=== PATIENT | female | born 1950 | race Caucasian/White ===

== ENCOUNTER → 2017-03-17 | Outpatient (CLI) | payer MEDICARE | END | disposition home or self-care (01) | LOC: RAD 19:18 | PROVIDERS: ATTEND Physician Assistant | DX: S46.111A Strain of muscle, fascia and tendon of long head of biceps, right arm, initial encounter (principal); X58.XXXA Exposure to other specified factors, initial encounter; Y93.89 Activity, other specified; Y92.89 Other specified places as the place of occurrence of the external cause; Y99.8 Other external cause status ==

== ENCOUNTER 2017-07-02 12:44 | Emergency (ER) | payer MEDICARE ==
[~2017-07-02] VITALS: Ht 170.2 cm; Wt 95.0 kg
[2017-07-02 12:45] VITALS: BP 158/91
[2017-07-02 14:26] LABS: BASOPHILS # (AUTO) 0.06 x10^3/uL (0-0.1); BASOPHILS % (AUTO) 1 % (0-1); EOSINOPHILS # (AUTO) 0.51 x10^3/uL (0-0.4); EOSINOPHILS % (AUTO) 7 % (1-7); LYMPHOCYTES # (AUTO) 1.44 x10^3/uL (1-3.4); LYMPHOCYTES % (AUTO) 19 % (22-44); MD NO; MEAN CORPUSCULAR HEMOGLOBIN 31.5 pg (27.0-34.8); MEAN CORPUSCULAR HGB CONC 33.5 g/dL (32.4-35.8); MEAN PLATELET VOLUME 8.7 fL (7.4-10.4); MONOCYTES # (AUTO) 0.54 x10^3/uL (0.2-0.8); MONOCYTES % (AUTO) 7 % (2-9); NEUTROPHILS # (AUTO) 5.01 x10^3/uL (1.8-6.8); NEUTROPHILS % (AUTO) 66 % (42-75); PLATELET COUNT 274 x10^3/uL (130-400); RED BLOOD COUNT 4.65 x10^6/uL (3.82-5.3); RED CELL DISTRIBUTION WIDTH 13.4 % (9.6-15.2)
[2017-07-02 14:33] LABS: PROTHROMBIN TIME 10.4 Seconds (9.6-11.5)
[2017-07-02 14:34] LABS: ALBUMIN 4.1 g/dL (3.4-5.0); ANION GAP 9 mmol/L (5-15); CALCIUM 9.6 mg/dL (8.5-10.1); CHLORIDE 104 mmol/L (98-107); CREATININE 0.94 mg/dL (0.55-1.02)
[2017-07-02] MEDS ORDERED: ACETAMINOPHEN 500 MG TABLET PO ONE (16:00)
[2017-07-02] MEDS ORDERED: KETOROLAC 30 MG/1 ML IM ONE (16:00)
[2017-07-02] MEDS ORDERED: KETOROLAC 30 MG/1 ML ONE (16:46)
[2017-07-02] MEDS ORDERED: ACETAMINOPHEN 500 MG TABLET ONE (16:46)
== END 2017-07-02 16:58 | disposition home or self-care (01) ==
LOC: ED 16:52
DX: S29.9XXA Unspecified injury of thorax, initial encounter (principal); R79.1 Abnormal coagulation profile; W01.0XXA Fall on same level from slipping, tripping and stumbling without subsequent striking against object, initial encounter; Y93.89 Activity, other specified; Y92.89 Other specified places as the place of occurrence of the external cause; Y99.8 Other external cause status
CPT/HCPCS: 36415; 71250; 80048; 82040; 85025; 85610; 85730; 96372; 99285; J1885

== ENCOUNTER 2019-03-09 20:47 | Inpatient (IN) | payer MEDICARE ==
[~2019-03-09] VITALS: Ht 170.2 cm; Wt 98.4 kg
--- NOTE | 2019-03-09 21:39 | NUR ---
pt to room from lobby
--- NOTE | 2019-03-09 21:46 | NUR ---
pt to room with multi complaints very talkative
[2019-03-09 22:12] LABS: BASOPHILS % (AUTO) 1 % (0-1); EOSINOPHILS # (AUTO) 0.28 x10^3/uL (0-0.4); EOSINOPHILS % (AUTO) 4 % (1-7); LYMPHOCYTES # (AUTO) 2.19 x10^3/uL (1-3.4); LYMPHOCYTES % (AUTO) 31 % (22-44); MD NO; MEAN CORPUSCULAR HEMOGLOBIN 32.6 pg (27.0-34.8); MEAN CORPUSCULAR HGB CONC 33.1 g/dL (32.4-35.8); MEAN CORPUSCULAR VOLUME 98.4 fL (80-100); MEAN PLATELET VOLUME 8.1 fL (7.4-10.4); MONOCYTES % (AUTO) 8 % (2-9); NEUTROPHILS # (AUTO) 3.89 x10^3/uL (1.8-6.8); NEUTROPHILS % (AUTO) 55 % (42-75); PLATELET COUNT 264 x10^3/uL (130-400); RED CELL DISTRIBUTION WIDTH 14.2 % (9.6-15.2)
[2019-03-09 22:22] LABS: ALBUMIN 3.7 g/dL (3.4-5.0); ANION GAP 4 mmol/L (5-15); CALCIUM 8.7 mg/dL (8.5-10.1); CHLORIDE 106 mmol/L (98-107); CREATININE 0.94 mg/dL (0.55-1.02)
[2019-03-09 22:26] LABS: TROPONIN I < 0.015 ng/mL (0.000-0.045)
[2019-03-10] MEDS ORDERED: ONDANSETRON 2MG/ML, 2ML IVPush PRN (00:30)
[2019-03-10] MEDS ORDERED: POTASSIUM CHLORIDE 20 MEQ TAB.ER.PRT PO ONE (00:30)
[2019-03-10] MEDS ORDERED: ENOXAPARIN 40 MG/0.4 ML SQ SCH (00:30)
[2019-03-10] MEDS ORDERED: LABETALOL 5MG/ML, 20ML IVPush PRN (00:30)
[2019-03-10] MEDS ORDERED: ACETAMINOPHEN 325 MG TABLET PO PRN (00:30)
[2019-03-10] MEDS ORDERED: KETOROLAC 30 MG/1 ML IV PRN (00:30)
[2019-03-10 00:34] VITALS: BP 133/81
[2019-03-10 01:00] VITALS: BP 133/81
[2019-03-10] MEDS ORDERED: HYDR12.517 PO (01:17)
[2019-03-10] MEDS ORDERED: EZET10TA70 PO (01:17)
[2019-03-10] MEDS ORDERED: THYR15TA PO (01:17)
[2019-03-10] MEDS ORDERED: OLME5TAB4 PO (01:17)
[2019-03-10] MEDS ORDERED: DOXA1TAB2 PO (01:17)
[2019-03-10] MEDS ORDERED: CHOL100011 PO (01:17)
[2019-03-10] MEDS ORDERED: ASPI-515 PO (01:17)
[2019-03-10] MEDS ORDERED: ROSU5TAB PO (01:17)
[2019-03-10 01:25] LABS: TROPONIN I < 0.015 ng/mL (0.000-0.045)
[2019-03-10 01:48] LABS: FREE T4 (FREE THYROXINE) 0.75 ng/dL (0.76-1.46)
[2019-03-10 03:54] LABS: CHOL/HDL RATIO 2.8; LDL/HDL RATIO 1.4 (0.5-3.0)
[2019-03-10 08:20] VITALS: BP 124/76
[2019-03-10 08:55] LABS: TROPONIN I < 0.015 ng/mL (0.000-0.045)
[2019-03-10 09:00] LABS: ALANINE AMINOTRANSFERASE 54 U/L (12-78); ALBUMIN 3.7 g/dL (3.4-5.0)
[2019-03-10 09:02] LABS: ALKALINE PHOSPHATASE 114 U/L (45-117); BILIRUBIN,TOTAL 0.5 mg/dL (0.2-1.0); TOTAL PROTEIN 7.3 g/dL (6.4-8.2)
[2019-03-10 09:04] LABS: BILIRUBIN, DIRECT < 0.1 mg/dL (0.1-0.2); BILIRUBIN,INDIRECT 0.4 mg/dL (0.0-2.0)
[2019-03-10 15:01] VITALS: BP 113/74
== END 2019-03-10 17:24 | disposition home or self-care (01) | DRG 313 ==
LOC: ED 22:26 → 5SO 03-10 00:17
PROVIDERS: ADMIT Family Medicine; ATTEND Family Medicine
DX: R07.89 Other chest pain (principal); E23.0 Hypopituitarism; E06.3 Autoimmune thyroiditis; E20.9 Hypoparathyroidism, unspecified; I10 Essential (primary) hypertension; E78.5 Hyperlipidemia, unspecified; E03.9 Hypothyroidism, unspecified; I25.10 Atherosclerotic heart disease of native coronary artery without angina pectoris; Z82.49 Family history of ischemic heart disease and other diseases of the circulatory system; Z86.718 Personal history of other venous thrombosis and embolism; Z98.61 Coronary angioplasty status; Z79.82 Long term (current) use of aspirin; Z79.899 Other long term (current) drug therapy; Z88.0 Allergy status to penicillin; Z88.8 Allergy status to other drugs, medicaments and biological substances
CPT/HCPCS: 36415; 71045; 80048; 80061; 80076; 82040; 83880; 84439; 84443; 84484; 85025; 85379; 93005; 93017; 93970; 99285; G0378; J1650